=== PATIENT | female | born 1950 | race Caucasian/White ===

== ENCOUNTER 2021-03-10 10:30 | Inpatient (IN) | payer OTHER, MEDICARE, SELFPAY ==
[2021-03-10] VITALS (12 sets, daily range): BP systolic 120–170; BP diastolic 58–90; PULSE 76–85; RESP 14–20; TEMP 36.8–37.3; O2SAT 92–98; BMI 30.2; BMI 30.6
[2021-03-10 11:04] LABS: Basophils # 0.1 K/mm3 (0-0.2); Basophils % 0.3 % (0.1-2.0); Eosinophils % 0.3 % (0.1-12.0); Hematocrit 38.7 % (37.0-47.0); Hemoglobin 14.1 g/dL (12.2-16.2); Lymphocytes # 1.1 K/mm3 (0.7-4.5); Lymphocytes % 7.5 % (10-50); Mean Corpuscular HGB Conc 36.5 g/dL (31.8-35.4); Mean Corpuscular Hemoglobin 30.6 pg (27.0-31.2); Mean Corpuscular Volume 83.7 fl (81-99); Mean Platelet Volume 6.9 fl (7.4-10.4); Monocytes # 0.6 K/mm3 (0.1-1.0); Monocytes % 4.2 % (1.7-9.3); Neutrophils # 12.5 K/mm3 (1.8-7.8); Neutrophils % 87.8 % (37.0-80.0); Platelet Count 445 K/mm3 (142-424); Red Blood Count 4.62 M/mm3 (4.20-5.40); Red Cell Distribution Width 13.8 % (11.5-17.5); White Blood Count 14.2 K/mm3 (4.8-10.8)
[2021-03-10 11:05] LABS: MANUAL DIFFERENTIAL MANUAL DIFFERENTIAL (MANUAL DIFF)
--- NOTE | 2021-03-10 11:10 | HMH.EDGENADL ---
ED Disposition Clinical Impression: Hypokalemia, Tesfaye's palsy Disposition: Admitted as Observation Condition on Discharge: Good Referrals: Shavon Joaquin MD [Primary Care Provider] - - Critical Care Critical Care Time: No Attestation: On 03/10/21, the high probability of a clinically significant, sudden or life threatening deterioration of the following system(s) required my full and direct attention, intervention and personal management. The time I documented below is in addition to time spent performing reported procedures but includes the following listed in this critical care notation. Medical Decision Making - Medical Records Medical records reviewed: Yes: I reviewed the patient's medical records. - [place] Inquiry Pt receiving controlled substance: No Vital Signs: 03/10/21 10:31 Temperature 98.5 F Temperature Source Oral Pulse Rate [Left] 77 Respiratory Rate 18 Blood Pressure [Right Arm] 149/75 H Blood Pressure Mean [Right Arm] 99 Blood Pressure Source [Right Arm] Automatic Cuff 02 Sat by Pulse Oximetry 98 Oxygen Delivery Method Room Air - Lab Data Lab Results 03/10/21 10:50: WBC 14.2 H, RBC 4.62, Hgb 14.1, Hct 38.7, MCV 83.7, MCH 30.6, MCHC 36.5 H, RDW 13.8, Plt Count 445 H, MPV 6.9 L, Neut % (Auto) 87.8 H, Lymph % (Auto) 7.5 L, [place] % (Auto) 4.2, Eos % (Auto) 0.3, Baso % (Auto) 0.3, Neut # (Auto) 12.5 H, Lymph # (Auto) 1.1, [place] # (Auto) 0.6, Eos # (Auto) 0.0, Baso # (Auto) 0.1, Total Counted 100, Neutrophils % (Manual) 80 H, Band Neutrophils % 3.0, Lymphocytes % (Manual) 11, Monocytes % (Manual) 6, Platelet Estimate Normal 03/10/21 10:50: Sodium 112 L*, Potassium 3.1 L, Chloride 67 L, Carbon Dioxide 31 H, Anion Gap 17.1 H, BUN 25 H, Creatinine 0.90, Estimated Creat Clear 61, Estimated GFR 62, Est GFR ( Amer) 75, Glucose 104 H, Calcium 8.8, Magnesium 1.4 L, Total Bilirubin 0.9, AST 42 H, ALT 24, Alkaline Phosphatase 97, Total Protein 7.6, Albumin 4.6, Globulin 3.0, Albumin/Globulin Ratio 1.5 Result diagrams: 03/10/21 10:50 03/10/21 10:50 Orders (Tests/Meds): ED MEDICATIONS Generic Name Dose Route Start Last Admin Trade Name Denzel PRN Reason Stop Dose Admin Magnesium Sulfate 2 gm/ Sodium 104 mls @ 100 mls/hr 03/10/21 11:45 03/10/21 11:51 Chloride IV 03/10/21 12:47 100 mls/hr ONCE ONE Administration Sodium Chloride 1,000 mls @ 125 mls/hr 03/10/21 12:15 Sod Chlor 0.9% 1000ml Bag IV 04/09/21 12:14 .Q8H BRIANNA Discontinued Medications Generic Name Dose Route Start Last Admin Trade Name Freq PRN Reason Stop Dose Admin Sodium Chloride 1,000 mls @ 999 mls/hr 03/10/21 11:00 03/10/21 11:03 Sod Chlor 0.9% 1000ml Bag IV 03/10/21 12:00 999 mls/hr .Q1H1M BRIANNA Administration Promethazine HCl 25 mg 03/10/21 10:56 03/10/21 11:03 Promethazine Hcl 25mg/Ml 1ml Vial IV 03/10/21 10:57 25 mg ONCE ONE Administration Sodium Chloride 25 ml 03/10/21 10:56 03/10/21 11:28 Sodium Chloride 0.9% 25ml Bag IV 03/10/21 10:57 25 ml ONCE ONE Administration ORDERS Category Date Time Status Basic Metabolic Panel AMLAB Lab 03/11/21 06:00 Ordered Complete Blood Count Auto Diff AMLAB Lab 03/11/21 06:00 Ordered Lipid Panel AMLAB Lab 03/11/21 06:00 Ordered Magnesium AMLAB Lab 03/11/21 06:00 Ordered Phosphorous AMLAB Lab 03/11/21 06:00 Ordered Medical Decision Narrative: 70-year-old female with nausea vomiting diarrhea as above. She is in no acute distress nontoxic-appearing comfortable in the room. Afebrile. She does have normal vital signs in the emergency department. She does not have an acute abdomen on exam. Labs obtained for evaluation of electrolyte abnormality or dehydration. Given IV fluids and antiemetic too. Patient has hyponatremia hypokalemia and hypomagnesia. Started on IV fluids at 125 mL/h. Replacing magnesium and potassium as well. Discussed case with Dr. Norris who recommended admission and he will staff her this afternoon.
[2021-03-10 11:19] LABS: Potassium 3.1 mmoL/L (3.5-5.1)
[2021-03-10 11:21] LABS: Alanine Aminotransferase 24 U/L (12-78); Aspartate Amino Transferase 42 U/L (14-36); Blood Urea Nitrogen 25 mg/dl (7-17); Creatinine Clearance Estimated 61 mL/min (50-200); Estimated Glomerular Filt Rate 62 ml/min (>60); GFR (African American) 75 ML/MIN (>60)
[2021-03-10 11:22] LABS: Albumin Level 4.6 g/dl (3.5-5.0); Albumin/Globulin Ratio 1.5 (1.1-1.8); Alkaline Phosphatase 97 U/L (38-126); Bilirubin,Total 0.9 mg/dl (0.2-1.3); Calcium 8.8 mg/dl (8.4-10.2); Carbon Dioxide 31 mmol/L (22.0-30.0); Glucose 104 mg/dl (74-100); Magnesium 1.4 mg/dl (1.6-2.3); Total Protein,Serum 7.6 g/dl (6.3-8.2)
[2021-03-10 11:23] LABS: Anion Gap 17.1 mEq/L (5-15); Chloride 67 mmol/L (98-107)
[2021-03-10 11:24] LABS: Sodium 112 mmol/L (136-145)
--- NOTE | 2021-03-10 11:25 | PC.NURSE ---
lab called with patient critical. sodium 112, chloride 67
[2021-03-10 11:26] LABS: Lymphocytes % 11 % (10-50); Monocytes % 6 % (2-9); Neutrophils % 80 % (42-76); Platelet Estimate Normal; Total Cells Counted 100
--- NOTE | 2021-03-10 11:55 | PC.NURSE ---
ANA MAYBERRY spoke with Dr. Norris
--- NOTE | 2021-03-10 12:13 | PC.NURSE ---
notified care management of admission, spoke with Elise
[2021-03-10 14:03] LABS: Coronavirus 19, PCR Not Detected (NotDetected); Influenza A, PCR Not Detected (NotDetected); Influenza B, PCR Not Detected (NotDetected)
--- NOTE | 2021-03-10 15:23 | PC.NURSE ---
called report to Celia STEVENS. Celia RN was busy at this time and could not take report. report was attempted to be called prior to this but we were having issues with orders being transferred and she was waiting for report for issue to be resolved. will try again at a later time.
--- NOTE | 2021-03-10 15:30 | PC.NURSE ---
report called to RODNEY Yang
--- NOTE | 2021-03-10 15:37 | P.CONPHA_ITS ---
[facility] Pharmacy VTE Monitoring - Patient Demographics Admission date: 03/10/21 Report Date: 03/10/21 Time: 15:37 Allergies/Adverse Reactions: Patient Allergies No Known Allergies Allergy (Verified 03/10/21 11:27) Height: 1.55 m Weight: 72.575 kg Patient Problems: Current Active Problems Hypokalemia (Acute) Tesfaye's palsy (Acute) - VTE Risk Labs: VTE Related Lab Results Hgb 14.1 g/dL (12.2-16.2) 03/10/21 10:50 Hct 38.7 % (37.0-47.0) 03/10/21 10:50 Plt Count 445 K/mm3 (142-424) H 03/10/21 10:50 BUN 25 mg/dl (7-17) H 03/10/21 10:50 Creatinine 0.90 mg/dl (0.52-1.04) 03/10/21 10:50 Estimated Creat Clear 61 mL/min (50-200) 03/10/21 10:50 - Prophylaxis VTE Prophylaxis Ordered?: Yes Types of VTE Prophylaxis: TEDS Knee High Location of Applied Device: Bilateral Lower Extremeties
--- NOTE | 2021-03-10 15:48 | HMH.PHAINT ---
clarified home medicaiton list using list from outpatient pharmacy
--- NOTE | 2021-03-10 17:06 | HMH.HP ---
*Admission Date: 03/10/21 *Chief complaint: Weakness *History of present illness: 70-year-old female presented to the emergency department today with worsening weakness, vomiting with occasional diarrhea. Patient had been seen in the office 2 days prior and appeared dehydrated and weak. Patient had been unable to keep down liquids since that time. In the ER work-up revealed severe hyponatremia, hypokalemia, hypomagnesemia. Outside labs performed through my office showed sodium level of 128 ten days prior with normal potassium level. Patient does take Maxide. Patient was admitted for correction of her electrolyte imbalances. Patient admits she was having difficulty ambulating due to weakness in the lower legs but also having cramps in the lower legs and had suspected she may have low potassium. [facility] History I have reviewed the patient's past medical history: Yes Medical History: Reports:: Diabetes Mellitus Type 2, Hyperlipidemia, Hypertension *Have you ever received a pneumonia vaccine?: Yes *Have you received a flu vaccine this season?: Yes - *Social History Last grade of school completed: High school graduate Smoking Status: Never smoker Alcohol Intake: never *Occupational Status:: employed *Travel in the last 8 weeks: None Family Hx:: Non-contributory Review of Systems - Constitutional Reports body ache(s), Reports lack of energy, Reports malaise, Reports weakness - Eyes Denies blurry vision - ENT Denies change in voice - *Cardiovascular Denies chest pain, Denies chest pain at rest - *Respiratory Denies change in phlegm color, Denies chest congestion, Denies cough - *Gastrointestinal Reports abdominal pain, Reports bloating, Reports change in stools, Reports loose stools, Reports vomiting - *Genitourinary Denies painful urination - *Musculoskeletal Denies joint pain, Denies decreased muscle mass, Denies back pain, Denies deformity - Integumentary/Breasts Denies change in hair - *Neurologic Denies dizziness, Denies headache(s) - Psychiatric Denies lack of enjoyment Meds Home Medications Medication Instructions Recorded Confirmed Type Acyclovir 400 mg PO 03/10/21 03/10/21 History Atorvastatin Calcium [Lipitor 40mg 40 mg PO DAILY 03/10/21 03/10/21 History Tab] Glimepiride 4 mg PO DAILY 03/10/21 03/10/21 History Metformin HCl [Metformin HCl ER] 500 mg PO BID 03/10/21 03/10/21 History Pioglitazone HCl 15 mg PO DAILY 03/10/21 03/10/21 History Triamterene/Hydrochlorothiazid 1 each PO DAILY 03/10/21 03/10/21 History [Triamterene-Hctz 37.5-25 mg Tb] predniSONE [Deltasone 10mg tablet] 10 mg PO DIRECTED 03/10/21 03/10/21 History Allergies Allergy/AdvReac Type Severity Reaction Status Date / Time No Known Allergies Allergy Verified 03/10/21 11:27 Exam Vital signs and Labs for Last 24 Hours: Temp Pulse Resp BP Pulse Ox 98.7 F 79 20 127/66 95 03/10/21 16:05 03/10/21 16:05 03/10/21 16:05 03/10/21 16:05 03/10/21 16:05 Laboratory Results - last 24 hr 03/10/21 10:50: WBC 14.2 H, RBC 4.62, Hgb 14.1, Hct 38.7, MCV 83.7, MCH 30.6, MCHC 36.5 H, RDW 13.8, Plt Count 445 H, MPV 6.9 L, Neut % (Auto) 87.8 H, Lymph % (Auto) 7.5 L, [place] % (Auto) 4.2, Eos % (Auto) 0.3, Baso % (Auto) 0.3, Neut # (Auto) 12.5 H, Lymph # (Auto) 1.1, [place] # (Auto) 0.6, Eos # (Auto) 0.0, Baso # (Auto) 0.1, Total Counted 100, Neutrophils % (Manual) 80 H, Band Neutrophils % 3.0, Lymphocytes % (Manual) 11, Monocytes % (Manual) 6, Platelet Estimate Normal 03/10/21 10:50: Sodium 112 L*, Potassium 3.1 L, Chloride 67 L, Carbon Dioxide 31 H, Anion Gap 17.1 H, BUN 25 H, Creatinine 0.90, Estimated Creat Clear 61, Estimated GFR 62, Est GFR ( Amer) 75, Glucose 104 H, Calcium 8.8, Magnesium 1.4 L, Total Bilirubin 0.9, AST 42 H, ALT 24, Alkaline Phosphatase 97, Total Protein 7.6, Albumin 4.6, Globulin 3.0, Albumin/Globulin Ratio 1.5 03/10/21 13:58: SARS-CoV-2 (PCR) Not detected, Influenza A Untype (PCR) Not d
[2021-03-10 20:37] LABS: Sodium 117 mmol/L (136-145)
[2021-03-10 20:40] LABS: Blood Urea Nitrogen 19 mg/dl (7-17); Carbon Dioxide 30 mmol/L (22.0-30.0); Creatinine Clearance Estimated 62 mL/min (50-200); Estimated Glomerular Filt Rate 71 ml/min (>60); GFR (African American) 86 ML/MIN (>60)
[2021-03-10 20:41] LABS: Calcium 8.1 mg/dl (8.4-10.2); Glucose 145 mg/dl (74-100)
[2021-03-10 20:48] LABS: Chloride 77 mmol/L (98-107)
--- NOTE | 2021-03-10 22:30 | PC.NURSE ---
PROOF TECHNICIAN HELPER PLACED ON PT FOR RUNS OF KCL ,PT KCL LEVEL WAS 3.0.PT WAS GIVEN ZOFRAN 4MG SL FOR NAUSEA,WILL CONTINUE TO MONITOR
[2021-03-11] VITALS: PULSE 80
[2021-03-11 04:00] VITALS: BP 125/63; PULSE 77; PULSE 80; RESP 17; TEMP 37.2; O2SAT 95
[2021-03-11 05:13] VITALS: BMI 30.7
--- NOTE | 2021-03-11 06:00 | PC.NURSE ---
NO ACUTE CHANGES FROM PREIOUS ASSESSMENT.PT HAS RECIEVED 2 RUNS OF KCL AND DONE WELL WITH IT,WAS MEDICATED WITH ZOFRAN PROIR TO STARTING KCL.
[2021-03-11 07:12] LABS: Basophils % 0.4 % (0.1-2.0); Eosinophils % 0.1 % (0.1-12.0); Hematocrit 37.5 % (37.0-47.0); Hemoglobin 12.9 g/dL (12.2-16.2); Lymphocytes # 1.1 K/mm3 (0.7-4.5); Mean Corpuscular HGB Conc 34.4 g/dL (31.8-35.4); Mean Corpuscular Volume 87.2 fl (81-99); Monocytes # 0.5 K/mm3 (0.1-1.0); Monocytes % 4.9 % (1.7-9.3); Neutrophils # 9.3 K/mm3 (1.8-7.8); Neutrophils % 84.6 % (37.0-80.0); Platelet Count 356 K/mm3 (142-424); Red Cell Distribution Width 13.9 % (11.5-17.5)
[2021-03-11 07:14] LABS: Chloride 85 mmol/L (98-107); Sodium 120 mmol/L (136-145)
[2021-03-11 07:15] LABS: Potassium 3.4 mmoL/L (3.5-5.1)
[2021-03-11 07:17] LABS: Anion Gap 10.4 mEq/L (5-15); Blood Urea Nitrogen 14 mg/dl (7-17); Carbon Dioxide 28 mmol/L (22.0-30.0); Creatinine Clearance Estimated 62 mL/min (50-200); Estimated Glomerular Filt Rate 83 ml/min (>60); GFR (African American) 100 ML/MIN (>60)
[2021-03-11 07:18] LABS: Calcium 7.9 mg/dl (8.4-10.2); Chol/HDL Ratio 2.2 (1-3.5); Cholesterol 112 mg/dl (140-200); Glucose 135 mg/dl (74-100); HDL Cholesterol 50 mg/dl (40-60); Magnesium 1.8 mg/dl (1.6-2.3); Triglycerides 83 mg/dl (30-150); VLDL Cholesterol 17 mg/dL (0-40)
[2021-03-11 07:22] LABS: POC Glucose,Bedside 132 (70-110)
[2021-03-11 07:26] LABS: Phosphorous 1.9 mg/dl (2.5-4.5)
[2021-03-11 07:29] LABS: Direct LDL Cholesterol 35.18 mg/dL (100-129)
[2021-03-11 08:00] VITALS: BP 127/61; BP 141/68; PULSE 71; RESP 18; RESP 20; TEMP 36.6; TEMP 36.7; O2SAT 97; O2SAT 98
--- NOTE | 2021-03-11 08:29 | HMH.ACPN2 ---
Internal Medicine - PN: Subj *Date: 03/11/21 *Time: 08:29 Interval history: Patient reports feeling better except for some back pain that began earlier in the week when she was having her episodes of vomiting. Exam Vital signs and Labs for Last 24 Hours: Temp Pulse Resp BP Pulse Ox 98.9 F 77 17 125/63 95 03/11/21 04:00 03/11/21 04:00 03/11/21 04:00 03/11/21 04:00 03/11/21 04:00 Laboratory Results - last 24 hr 03/10/21 10:50: WBC 14.2 H, RBC 4.62, Hgb 14.1, Hct 38.7, MCV 83.7, MCH 30.6, MCHC 36.5 H, RDW 13.8, Plt Count 445 H, MPV 6.9 L, Neut % (Auto) 87.8 H, Lymph % (Auto) 7.5 L, [place] % (Auto) 4.2, Eos % (Auto) 0.3, Baso % (Auto) 0.3, Neut # (Auto) 12.5 H, Lymph # (Auto) 1.1, [place] # (Auto) 0.6, Eos # (Auto) 0.0, Baso # (Auto) 0.1, Total Counted 100, Neutrophils % (Manual) 80 H, Band Neutrophils % 3.0, Lymphocytes % (Manual) 11, Monocytes % (Manual) 6, Platelet Estimate Normal 03/10/21 10:50: Sodium 112 L*, Potassium 3.1 L, Chloride 67 L, Carbon Dioxide 31 H, Anion Gap 17.1 H, BUN 25 H, Creatinine 0.90, Estimated Creat Clear 61, Estimated GFR 62, Est GFR ( Amer) 75, Glucose 104 H, Calcium 8.8, Magnesium 1.4 L, Total Bilirubin 0.9, AST 42 H, ALT 24, Alkaline Phosphatase 97, Total Protein 7.6, Albumin 4.6, Globulin 3.0, Albumin/Globulin Ratio 1.5 03/10/21 13:58: SARS-CoV-2 (PCR) Not detected, Influenza A Untype (PCR) Not detected, Influenza Type B (PCR) Not detected 03/10/21 20:15: Sodium 117 L, Potassium 3.0 L, Chloride 77 L, Carbon Dioxide 30, Anion Gap 13.0, BUN 19 H, Creatinine 0.80, Estimated Creat Clear 62, Estimated GFR 71, Est GFR ( Amer) 86, Glucose 145 H D, Calcium 8.1 L 03/11/21 06:17: POC Glucose 132 H 03/11/21 06:53: WBC 11.0 H, RBC 4.30, Hgb 12.9, Hct 37.5, MCV 87.2, MCH 30.0, MCHC 34.4, RDW 13.9, Plt Count 356, MPV 7.0 L, Neut % (Auto) 84.6 H, Lymph % (Auto) 10.0, [place] % (Auto) 4.9, Eos % (Auto) 0.1, Baso % (Auto) 0.4, Neut # (Auto) 9.3 H, Lymph # (Auto) 1.1, [place] # (Auto) 0.5, Eos # (Auto) 0.0, Baso # (Auto) 0.0 03/11/21 06:53: Sodium 120 L, Potassium 3.4 L, Chloride 85 L, Carbon Dioxide 28, Anion Gap 10.4, BUN 14 D, Creatinine 0.70, Estimated Creat Clear 62, Estimated GFR 83, Est GFR ( Amer) 100, Glucose 135 H, Calcium 7.9 L, Phosphorus 1.9 L, Magnesium 1.8 D, Triglycerides 83, Cholesterol 112 L, LDL Cholesterol Direct 35.18 L, VLDL Cholesterol 17, HDL Cholesterol 50, Cholesterol/HDL Ratio 2.2 I & O for Last 24 hours: Intake & Output 03/08/21 03/09/21 03/10/21 03/11/21 11:59 11:59 11:59 11:59 Intake Total 240 / 240 Balance 240 / 240 Weight 160 lb 162 lb 8 oz - Constitutional no acute distress - *Routine Respiratory Exam Present: CTA bilaterally - *Routine Cardiovascular Exam Present: RRR - *Routine Abdominal Exam Present: soft, normoactive bowel sounds. Absent: tenderness - *Routine Extremities Exam Absent: cyanosis, clubbing, edema Assessment and Plan (1) Hyponatremia Status: Acute Category: Medical Code(s): E87.1 - Hypo-osmolality and hyponatremia (2) Hypokalemia Status: Acute Category: Medical Code(s): E87.6 - Hypokalemia (3) Hypomagnesemia Status: Acute Category: Medical Code(s): E83.42 - Hypomagnesemia (4) Type 2 diabetes mellitus with hyperglycemia, without long-term current use of insulin Status: Acute Category: Medical Code(s): E11.65 - Type 2 diabetes mellitus with hyperglycemia (5) Essential hypertension Status: Acute Category: Medical Code(s): I10 - Essential (primary) hypertension - Assessment and plan all Dx Assessment and Plan for all problems:: Electrolyte imbalances are improving continue IV normal saline, transition to oral potassium replacement. Repeat labs in a.m.
[2021-03-11 10:41] VITALS: BP 142/62; PULSE 71; RESP 18; TEMP 36.9; O2SAT 98
[2021-03-11 14:54] VITALS: BP 153/82; PULSE 71; RESP 18; TEMP 36.6; O2SAT 97
--- NOTE | 2021-03-11 19:49 | PC.NURSE ---
No acute changes, VSS. Heating pad order received for back pain. Pt states it has improved some. CB in reach.
[2021-03-11 20:00] VITALS: O2SAT 98
[2021-03-12] VITALS: BP 138/73; PULSE 78; RESP 18; TEMP 36.6; O2SAT 98
[2021-03-12 04:00] VITALS: BP 140/69; PULSE 75; RESP 18; TEMP 36.6; O2SAT 98
[2021-03-12 05:20] VITALS: BMI 31.6
[2021-03-12 07:15] LABS: Anion Gap 9.6 mEq/L (5-15); Blood Urea Nitrogen 10 mg/dl (7-17); Carbon Dioxide 26 mmol/L (22.0-30.0); Chloride 86 mmol/L (98-107); Creatinine Clearance Estimated 64 mL/min (50-200); Estimated Glomerular Filt Rate 99 ml/min (>60); GFR (African American) 120 ML/MIN (>60); Glucose 166 mg/dl (74-100); Potassium 3.6 mmoL/L (3.5-5.1); Sodium 118 mmol/L (136-145)
[2021-03-12 08:00] VITALS: BP 123/64; PULSE 75; RESP 18; TEMP 36.9; O2SAT 96
--- NOTE | 2021-03-12 08:05 | HMH.DCSUM ---
General - General Admission date:: 03/10/21 Discharge date: 03/12/21 HPI HPI: 70-year-old female presented to the emergency department today with worsening weakness, vomiting with occasional diarrhea. Patient had been seen in the office 2 days prior and appeared dehydrated and weak. Patient had been unable to keep down liquids since that time. In the ER work-up revealed severe hyponatremia, hypokalemia, hypomagnesemia. Outside labs performed through my office showed sodium level of 128 ten days prior with normal potassium level. Patient does take Maxide. Patient was admitted for correction of her electrolyte imbalances. Patient admits she was having difficulty ambulating due to weakness in the lower legs but also having cramps in the lower legs and had suspected she may have low potassium. Hospital Course Hospital Course: Patient was admitted and placed on IV normal saline for her hyponatremia and given separate runs of IV potassium for her hypokalemia. Hypomagnesemia was treated with 2 g of mag sulfate intravenously in the emergency department. By that evening electrolyte imbalances had begun to correct with improvement in both magnesium and potassium as well as sodium. Patient was continued on IV normal saline overnight. The following morning (March 11) sodium continued to improve as had potassium. Patient's potassium replacement was switched to oral form. Patient tolerated this along with regular diet. Patient's primary complaint became back pain which she says was related to the gastroenteritis she had experienced that began this ordeal. Patient was given IV Toradol, oral acetaminophen, and a heating pad. On the morning of March 12 patient was ambulating without assistance, was tolerating diet, and had no mental status changes. Patient was discharged home. Patient will follow-up in the office on March 15 for repeat electrolytes. Objective Vital signs: Temp Pulse Resp BP Pulse Ox 97.8 F 75 18 140/69 98 03/12/21 04:00 03/12/21 04:00 03/12/21 04:00 03/12/21 04:00 03/12/21 04:00 no acute distress - *Routine HEENT Exam Head: Present: normocephalic Eye: Present: EOMI, PERRL ENT: Present: mucous membranes moist - *Routine Neck Exam Present: supple - *Routine Respiratory Exam Present: CTA bilaterally - *Routine Cardiovascular Exam Present: RRR - *Routine Abdominal Exam Present: soft, normoactive bowel sounds. Absent: tenderness - *Routine Extremities Exam Absent: cyanosis, clubbing, edema - *Routine Skin Exam Present: warm. Absent: rash - Detailed Eye Exam Eyelids: Bilateral normal inspection Results Labs on day of discharge: Labs from last 24 hours 03/12/21 06:29 Sodium 118 L Potassium 3.6 Chloride 86 L Carbon Dioxide 26 Anion Gap 9.6 BUN 10 D Creatinine 0.60 Estimated Creat Clear 64 Estimated GFR 99 Est GFR ( Amer) 120 Glucose 166 H D Calcium 8.0 L DS: Diagnosis - Discharge Diagnosis (1) Hyponatremia Status: Acute (2) Hypokalemia Status: Resolved (3) Hypomagnesemia Status: Resolved (4) Type 2 diabetes mellitus with hyperglycemia, without long-term current use of insulin Status: Acute (5) Essential hypertension Status: Acute Discharge Plan - Patient Discharge Instructions ACTIVITY: Continue current activity DIET: continue same diet - Follow up Plan Follow up with: Patrick Norris MD [Staff Physician] - 03/15/21 Disposition: Home, Self-Care Condition at discharge:: Improved Home Medications: Home Medications Medication Instructions Recorded Confirmed Type Acyclovir 400 mg PO 5XDAY 03/10/21 03/10/21 History Atorvastatin Calcium [Lipitor 40mg 40 mg PO DAILY 03/10/21 03/10/21 History Tab] Glimepiride 4 mg PO DAILY 03/10/21 03/10/21 History Metformin HCl [Metformin HCl ER] 500 mg PO BID 03/10/21 03/10/21 History Pioglitazone HCl 15 mg PO DAILY 03/10/21 03/10/21
--- NOTE | 2021-03-12 09:54 | PC.NURSE ---
Pt d/cd this am at aprox 0905.
== END 2021-03-12 09:05 | disposition home or self-care (01) | DRG 641 ==
LOC: ER 12:07 → 2ND 14:07
PROVIDERS: Admitting Provider Family Medicine; Emergency Provider Emergency Medicine; PCP Family Medicine; Visit Provider Family Medicine
DX: E86.0 Dehydration (principal); E87.1 Hypo-osmolality and hyponatremia; G51.0 Bell's palsy; E87.6 Hypokalemia; E83.42 Hypomagnesemia; E11.9 Type 2 diabetes mellitus without complications; I10 Essential (primary) hypertension; Z79.84 Long term (current) use of oral hypoglycemic drugs; Z20.822 Contact with and (suspected) exposure to COVID-19
CPT/HCPCS: 36415; 80048; 80053; 80061; 82962; 83735; 84100; 85007; 85025; 96365; 96366; 99284; U0003

== ENCOUNTER 2024-12-02 07:46 | Outpatient (CLI) | payer MEDICARE, BC, SELFPAY ==
--- NOTE | 2024-12-02 07:52 | CT_ITS ---
FINAL REPORT TECHNIQUE: Thin section axial images were obtained from the thoracic inlet through the upper abdomen after intravenous contrast injection. Reconstruction images were obtained from the axial data. Exam was performed using dose reduction technique. CLINICAL HISTORY: CANCER OF HARD PALATE COMPARISON: None FINDINGS: There is no mediastinal, hilar, or axillary lymphadenopathy. There is no pleural or pericardial effusion. Mild emphysema is noted. There are no suspicious nodules or masses. No consolidations. Limited evaluation of the upper abdomen is without acute abnormality. No acute osseous abnormality. IMPRESSION: No acute intrathoracic abnormality. No evidence of metastatic disease to the chest. Reviewed, Interpreted and Dictated by Ritu Baer MD Transcribed by Izabel Mark Authenticated and . [facility]
--- NOTE | 2024-12-02 07:52 | CT_ITS ---
FINAL REPORT CLINICAL HISTORY: cancer of hard palate COMPARISON: None FINDINGS: CT SINUSES TECHNIQUE: Thin section axial CT with coronal and sagittal reconstructions were obtained after the administration of IV contrast. This study was performed with techniques to keep radiation doses as low as reasonably achievable, (ALARA). Individualized dose reduction techniques using automated exposure control or adjustment of mA and/or kV according to the patient's size were employed. No discrete mass in the palate identified, although oral cavity evaluation is limited due to artifact. There is mucoperiosteal thickening in the bilateral maxillary sinuses, right greater than left, and anterior ethmoid air cells. There are no air-fluid levels. The mastoids are clear. The remaining soft tissues are without acute abnormality. There is no acute osseous abnormality. IMPRESSION: Minimal changes in the paranasal sinuses. Otherwise, no acute soft tissue or osseous abnormality. Reviewed, Interpreted and Dictated by Ritu Baer MD Transcribed by Izabel Mark Authenticated and [facility]
[2024-12-02 08:27] LABS: Blood Urea Nitrogen 19 mg/dl (7-17); Estimated Glomerular Filt Rate 61 ml/min (>60); GFR (African American) 74 ML/MIN (>60)
--- NOTE | 2024-12-02 08:49 | CT_ITS ---
FINAL REPORT TECHNIQUE: Thin section axial CT images with coronal and sagittal reformats were performed after the administration of IV contrast. This study was performed with techniques to keep radiation doses as low as reasonably achievable (ALARA). Individualized dose reduction techniques using automated exposure control or adjustment of mA and/or kV according to the patient''s size were employed. CLINICAL HISTORY: CANCER OF HARD PALATE COMPARISON: None FINDINGS: The nasopharynx, oropharynx, epiglottis, and larynx are unremarkable. The thyroid is homogeneous. The submandibular salivary glands and parotid glands are unremarkable. Artifact from dental amalgam limits evaluation of the palate and floor of the mouth. There are small bilateral submandibular lymph nodes. Otherwise, no cervical lymphadenopathy. No acute osseous abnormalities are identified. There is degenerative disc disease in the spine. IMPRESSION: No cervical lymphadenopathy to suggest metastatic disease. Limited evaluation of the hard palate due to artifact but no large mass identified. Reviewed, Interpreted and Dictated by Ritu Baer MD Transcribed by Izabel Mark Authenticated and [facility]
[2024-12-02] MEDS: SODIUM CHLORIDE 0.9% 10ML SYR (RAD ONLY) 10 ML IV (09:35)
[2024-12-02] MEDS: IOPAMIDOL-370 (76%);100ML BOTTLE 75 ML IV ×2 (09:35)
== END 2024-12-02 23:59 | disposition home or self-care (01) ==
LOC: RAD 07:47
PROVIDERS: PCP Family Medicine; Visit Provider Oral & Maxillofacial Surgery
DX: C05.0 Malignant neoplasm of hard palate (principal)
CPT/HCPCS: 36415; 70487; 70491; 71260; 82565; 84520; Q9967